=== PATIENT | female | born 1985 ===

== ENCOUNTER → 2016-11-16 | Outpatient (CLI) | payer OTHER ==
--- NOTE | 2016-11-21 07:42 | MAMMOGRAPHY REPORT ---
ULTRASOUND OF LEFT BREAST: 11/16/2016 CLINICAL HISTORY: The patient reports intermittent dull pain in her left upper outer breast for appro ximately 6 months. She denies any palpable lumps. COMPARISON: No prior exams were available for comparison. TECHNIQUE: Real-time targeted ultrasound of the left breast was performed. FINDINGS: Real-time, high resolution targeted ultrasound was performed of the area of pain pointed o ut by the patient, in the left upper outer quadrant/axillary tail region. Sonographically normal tis edy is seen in this region, without evidence of a mass or other suspicious sonographic abnormality. Incidentally noted is a morphologically normal left axillary lymph node, with no axillary adenopathy evident. IMPRESSION: ACR BI-RADS CATEGORY 2: BENIGN No suspicious sonographic abnormality noted at the site of intermittent left breast pain pointed out by the patient. There is no sonographic evidence of malignancy. Recommend clinical follow-up. The patient was verbally notified of the results. Cary Sampson M.D. ah/:11/16/2016 10:55:14 [employer]: Cary Sampson MD, [facility] letter sent: Normal 1/2 BI-RADS Code: ACR BI-RADS Category 2: Benign
== END | disposition home or self-care (01) ==
LOC: C.MAMM 10:25
PROVIDERS: ATTEND Family Medicine
DX: N64.4 Mastodynia (principal)